=== PATIENT | male | born 1945 | race Hispanic/Latino ===

== ENCOUNTER 2017-09-14 06:01 | Day surgery (SDC) | payer MEDICARE ==
[2017-09-12 11:28] VITALS: BP 125/59
[2017-09-12 11:48] LABS: BASOPHILS % (AUTO) 0.5 % (0.0-5.0); EOSINOPHILS % (AUTO) 1.8 % (0.0-8.0); HEMATOCRIT 46.2 % (42-54); LYMPHOCYTES % (AUTO) 34.4 % (21.0-51.0); MEAN CORPUSCULAR HEMOGLOBIN 29.4 pg (27.0-33.0); MEAN CORPUSCULAR HGB CONC 33.6 g/dL (32.0-36.0); MEAN CORPUSCULAR VOLUME 87.7 fL (79-99); MONOCYTES % (AUTO) 7.5 % (3.0-13.0); NEUTROPHILS % (AUTO) 55.8 % (40.0-77.0); PLATELET COUNT (AUTO) 215 K/uL (130-400); RED BLOOD CELL COUNT(AUTO) 5.27 MIL/uL (4.50-6.20); RED CELL DISTRIBUTION WIDTH 14.3 % (11.0-15.5); WHITE BLOOD COUNT (AUTO) 8.3 K/uL (4.8-10.8)
[2017-09-12 11:52] LABS: APPEARANCE,URINE Clear (CLEAR); BILIRUBIN,URINE Negative (NEGATIVE); COLOR,URINE Yellow (YELLOW); GLUCOSE, URINE (UA) Negative (NEGATIVE); KETONES,URINE Negative (NEGATIVE); LEUKOCYTE ESTERASE ,URINE Negative (NEGATIVE); NITRATE,URINE Negative (NEGATIVE); OCCULT BLOOD,URINE Negative (NEGATIVE); PROTEIN,URINE POS 2+ (NEGATIVE)
[2017-09-12 12:01] LABS: PARTIAL THROMBOPLASTIN TIME 27.8 SEC (26.3-35.5); PROTHROMBIN TIME 10.5 SEC (9.6-11.6)
[2017-09-12 12:04] LABS: POTASSIUM 4.5 mmol/L (3.5-5.1)
[2017-09-12 12:27] LABS: BACTERIA,URINE Rare /HPF (None Seen); MUCUS,URINE Many LPF (None Seen); RBC,URINE 0-1 /HPF (0-1); SQUAMOUS EPITHELIAL CELL,UR Rare /LPF (0-2); WBC,URINE 0-1 /HPF (0-1)
[2017-09-14] VITALS (23 sets, daily range): BP systolic 101–179; BP diastolic 47–83
[~2017-09-14] VITALS: Ht 170.2 cm; Wt 69.8 kg
[~2017-09-14 06:01] MED LIST: ASPI-1197 PO; CLOP75TA32 PO; GLIM4TAB3 PO; LISI10TA7 PO; METF500T6 PO; PIOG45TA64 PO
[2017-09-14] MEDS ORDERED: ATOR10TA69 PO (06:51)
[2017-09-14] MEDS ORDERED: FE F1CAP33 PO (06:51)
[2017-09-14] MEDS ORDERED: SODIUM CHLORIDE 0.9% 1000ML 1,000 ML IV ONE (06:53)
[2017-09-14] MEDS ORDERED: ISOVUE-300 100 ML VIAL IV ONE (07:09)
[2017-09-14] MEDS ORDERED: NITROGLYCERIN 5 MG/ML 10 ML VIAL IV ONE (07:09)
[2017-09-14] MEDS ORDERED: HEPARIN SODIUM 1000UNIT/ML 10ML VIAL ONE (07:09)
[2017-09-14] MEDS ORDERED: LIDOCAINE HCL 2% 20ML ONE (07:10)
[2017-09-14] MEDS ORDERED: MIDAZOLAM HCL 1 MG/ML 2ML VIAL ONE (07:58)
[2017-09-14] MEDS ORDERED: FENTANYL CITRATE PF 50 MCG/1 ML 2ML VIAL ONE (07:58)
[2017-09-14] MEDS ORDERED: GLUCAGON 1MG KIT 1 MG ML IM PRN (08:45)
[2017-09-14] MEDS ORDERED: DEXTROSE 50%-WATER 50 ML DISP.SYRIN IV PRN (08:45)
[2017-09-14] MEDS ORDERED: SODIUM CHLORIDE 0.9% 1000ML 1,000 ML IV SCH (08:45)
[2017-09-14] MEDS ORDERED: ACETAMINOPHEN-CODEINE 300/30MG TAB PO PRN (08:45)
[2017-09-14] MEDS ORDERED: NITROGLYCERIN 0.4 MG SL TAB SL PRN (08:45)
[2017-09-14] MEDS ORDERED: METOPROLOL TARTRATE 1 MG/ML 5ML VIAL IV PRN (08:45)
[2017-09-14] MEDS ORDERED: ASPIRIN 81MG TAB.CHEW ONE (08:48)
[2017-09-14] MEDS ORDERED: CLOPIDOGREL BISULFATE 300 MG TAB ONE (08:48)
[2017-09-14] MEDS ORDERED: ASPI-1197 PO (08:51)
[2017-09-14] MEDS ORDERED: ATROPINE SULFATE 0.1 MG/ML 10 ML SYG IVP ONE (10:56)
[2017-09-14] MEDS ORDERED: HYDRALAZINE HCL 20 MG/ML VIAL IV PRN (11:00)
[2017-09-14] MEDS ORDERED: HYDRALAZINE HCL 20 MG/ML VIAL ONE (11:02)
[2017-09-14] MEDS ORDERED: INSULIN HUMULIN R 100 UNIT/ML 3ML SQ SCH (11:30)
== END 2017-09-14 15:15 | disposition home or self-care (01) ==
LOC: DAH 06:01
PROVIDERS: ATTEND Internal Medicine Cardiovascular Disease
DX: T82.856A Stenosis of peripheral vascular stent, initial encounter (principal); E11.51 Type 2 diabetes mellitus with diabetic peripheral angiopathy without gangrene; I73.9 Peripheral vascular disease, unspecified; I10 Essential (primary) hypertension; E78.5 Hyperlipidemia, unspecified; F17.210 Nicotine dependence, cigarettes, uncomplicated; Z79.82 Long term (current) use of aspirin; Z79.4 Long term (current) use of insulin; Z79.01 Long term (current) use of anticoagulants; Z86.73 Personal history of transient ischemic attack (TIA), and cerebral infarction without residual deficits; Z79.899 Other long term (current) drug therapy; Y83.1 Surgical operation with implant of artificial internal device as the cause of abnormal reaction of the patient, or of later complication, without mention of misadventure at the time of the procedure
CPT/HCPCS: 36415 ×2; 37224; 71045; 75625; 75716; 75774; 80048; 81001; 82948 ×2; 85025; 85347; 85610; 85730; 93005; C1725; C1769 ×2; C1887; C1893; C1894 ×2; J0360; J1644; J2250; J3010; J3490 ×2; J7030; Q9967; 99152; 99153; J0461

== ENCOUNTER → 2018-05-22 | Outpatient (CLI) | payer MEDICARE ==
[~2018-05-22] MED LIST changes: +ATOR10TA69 PO; +FE F1CAP33 PO; +METF-444 PO; -METF500T6 PO; -PIOG45TA64 PO
== END | disposition home or self-care (01) ==
LOC: SHCH 12:54
PROVIDERS: ATTEND Internal Medicine Cardiovascular Disease
DX: I65.23 Occlusion and stenosis of bilateral carotid arteries (principal); I70.0 Atherosclerosis of aorta; I51.7 Cardiomegaly; R09.89 Other specified symptoms and signs involving the circulatory and respiratory systems
CPT/HCPCS: 93306; 93880

== ENCOUNTER 2018-06-03 17:53 | Emergency (ER) | payer MEDICARE ==
[2018-06-03] MEDS ORDERED: SODIUM CHLORIDE 0.9% 1000ML 1,000 ML IV ONE (18:12)
[2018-06-03 18:29] LABS: BASOPHILS % (AUTO) 0.8 % (0.0-5.0); HEMATOCRIT 43.2 % (42-54); MEAN CORPUSCULAR HEMOGLOBIN 30.1 pg (27.0-33.0); MEAN CORPUSCULAR HGB CONC 33.9 g/dL (32.0-36.0); MEAN CORPUSCULAR VOLUME 88.8 fL (79-99); MONOCYTES % (AUTO) 7.7 % (3.0-13.0); NEUTROPHILS % (AUTO) 59.5 % (40.0-77.0); NUCLEATED RED BLOOD CELLS 0.1 % (0.0-0.19); PLATELET COUNT (AUTO) 204 K/uL (130-400); RED BLOOD CELL COUNT(AUTO) 4.87 MIL/uL (4.50-6.20); RED CELL DISTRIBUTION WIDTH 13.9 % (11.0-15.5); WHITE BLOOD COUNT (AUTO) 9.3 K/uL (4.8-10.8)
[2018-06-03 18:49] LABS: CREATININE 1.1 mg/dL (0.5-1.5); POTASSIUM 4.1 mmol/L (3.5-5.1)
[2018-06-03] MEDS ORDERED: CLONIDINE HCL 0.1 MG TABLET ONE (20:15)
== END 2018-06-03 21:42 | disposition home or self-care (01) ==
LOC: EDH 17:53
DX: I10 Essential (primary) hypertension (principal); R42 Dizziness and giddiness; E11.9 Type 2 diabetes mellitus without complications; E78.5 Hyperlipidemia, unspecified; Z86.73 Personal history of transient ischemic attack (TIA), and cerebral infarction without residual deficits; Z72.0 Tobacco use; Z98.890 Other specified postprocedural states
CPT/HCPCS: 36415; 70450; 80048; 82948; 84484; 85025; 93005; 96360; 96361; 99285; J7030

== ENCOUNTER 2020-02-05 09:01 | Emergency (ER) | payer MEDICARE ==
[2020-02-05] MEDS ORDERED: DEXAMETHASONE SOD PHOSPHATE 10MG/ML 1ML VIAL ONE (12:55)
[2020-02-05] MEDS ORDERED: CEFTRIAXONE SODIUM 1 GM ONE (12:55)
[2020-02-05] MEDS ORDERED: AZITHROMYCIN 500MG+NS 250ML 250 ML IV ONE (12:55)
== END 2020-02-05 17:44 | disposition home or self-care (01) ==
LOC: EDH 09:01
DX: U07.1 COVID-19 (principal); R60.0 Localized edema; R53.1 Weakness; E78.5 Hyperlipidemia, unspecified; E11.9 Type 2 diabetes mellitus without complications; I10 Essential (primary) hypertension; Z72.0 Tobacco use
CPT/HCPCS: 36415; 36600; 71045; 80053; 82270; 82550; 82803; 83605; 83880; 84484; 85025; 85610; 85730; 87040 ×2; 87804 ×2; 87880; 93005; 96365; 96375; 99285; J0456; J0696; J1100; U0003